=== PATIENT | female | born 1990 | race Caucasian/White ===

== ENCOUNTER 2024-09-20 02:17 | Outpatient (CLI) | payer MEDICAID, SELFPAY ==
[2024-09-20 18:32] LABS: Estradiol 84 pg/mL (See Note)
== END 2024-09-20 02:18 | disposition home or self-care (01) ==
LOC: LBO 02:18
PROVIDERS: Visit Provider Obstetrics & Gynecology
DX: N95.9 Unspecified menopausal and perimenopausal disorder (principal)
CPT/HCPCS: 36415; 82670